=== PATIENT | female | born 1960 | race Caucasian/White ===

== ENCOUNTER → 2016-08-30 | Outpatient (CLI) | payer BC | LOC: MAMMO 09:21 | DX: Z12.31 Encounter for screening mammogram for malignant neoplasm of breast (principal) | CPT/HCPCS: G0202 ==

== ENCOUNTER → 2018-11-20 | Outpatient (CLI) | payer BC | LOC: MAMMO 14:17 | DX: Z12.31 Encounter for screening mammogram for malignant neoplasm of breast (principal) ==

== ENCOUNTER → 2020-12-22 | Outpatient (CLI) | payer BC | LOC: MAMMO 13:34 | DX: Z12.31 Encounter for screening mammogram for malignant neoplasm of breast (principal) ==

== ENCOUNTER → 2022-01-14 | Outpatient (CLI) | payer BC | LOC: RAD 10:10 → MAMMO 10:10 | DX: M81.0 Age-related osteoporosis without current pathological fracture (principal); Z12.31 Encounter for screening mammogram for malignant neoplasm of breast ==

== ENCOUNTER → 2023-01-24 | Outpatient (CLI) | payer BC | LOC: MAMMO 14:30 | DX: Z12.31 Encounter for screening mammogram for malignant neoplasm of breast (principal) ==

== ENCOUNTER → 2024-01-31 | Outpatient (CLI) | payer BC | LOC: MAMMO 13:20 | DX: Z12.31 Encounter for screening mammogram for malignant neoplasm of breast (principal) ==

== ENCOUNTER → 2024-07-30 | Outpatient (CLI) | payer BC | LOC: MAMMO 11:30 → RAD 11:33 | DX: Z13.820 Encounter for screening for osteoporosis (principal); M81.0 Age-related osteoporosis without current pathological fracture ==